=== PATIENT | male | born 1980 | race Caucasian/White ===

== ENCOUNTER 2016-09-26 10:00 | Emergency (ER) | payer OTHER | END 2016-09-26 13:03 | disposition home or self-care (01) | DX: S52.124A Nondisplaced fracture of head of right radius, initial encounter for closed fracture (principal); W11.XXXA Fall on and from ladder, initial encounter ==

== ENCOUNTER 2016-09-30 09:09 | Outpatient (CLI) | payer OTHER | END 2016-09-30 09:10 | disposition home or self-care (01) | DX: S52.121A Displaced fracture of head of right radius, initial encounter for closed fracture (principal); S52.044A Nondisplaced fracture of coronoid process of right ulna, initial encounter for closed fracture; S42.494A Other nondisplaced fracture of lower end of right humerus, initial encounter for closed fracture; M25.421 Effusion, right elbow ==

== ENCOUNTER 2016-10-31 13:08 | Outpatient (CLI) | payer OTHER | END 2016-10-31 13:09 | disposition home or self-care (01) | DX: S52.121D Displaced fracture of head of right radius, subsequent encounter for closed fracture with routine healing (principal) ==

== ENCOUNTER 2016-12-26 14:03 | Outpatient (CLI) | payer OTHER ==
--- NOTE | 2016-12-26 17:44 | XRAY Report ---
THREE VIEW RIGHT ELBOW: 12/26/2016 CLINICAL INDICATION: Followup radial head fracture. COMPARISON: 11/28/2016 AP, lateral, oblique views of the right elbow demonstrate stable alignment of the radial head fractur e. There has been interval increase in callus formation. No new fracture is appreciated. Effusion has decreased. IMPRESSION: INCREASING CALLUS FORMATION AT THE RIGHT RADIAL HEAD FRACTURE SITE. JOB #: [id number] EXT JOB #:[id number]
== END 2016-12-26 14:04 | disposition home or self-care (01) ==
LOC: DI 14:03
PROVIDERS: ATTEND Orthopaedic Surgery
DX: S52.121D Displaced fracture of head of right radius, subsequent encounter for closed fracture with routine healing (principal)

== ENCOUNTER 2017-01-03 07:13 | Outpatient (CLI) | payer OTHER ==
--- NOTE | 2017-01-03 11:36 | CT Report ---
CT OF THE RIGHT ARM WITHOUT CONTRAST: 01/03/2017 CLINICAL HISTORY: A 36-year-old male who had a significant right elbow injury 09/12/2016. Multiple fractures were present including a mildly depressed fracture of the radial head, a nondisplaced fracture of the tip of the coronoid process, a nondisplaced fracture of the anteromedial surface of the capitellum, as well as multiple tiny loose bodies representing small fracture fragments. Present exam is being done in followup. TECHNIQUE: Sagittal and coronal and axial reconstruction images were obtained at 1 x 1 mm intervals. FINDINGS: Mildly displaced fracture of the anterior aspect of the radial head is seen. Fracture involves the anterior third of the articular surface of the radial head. There is 2 mm of inferior displacement of the fracture fragment. This represents a stepoff in the articular surface. No significant bridging callus formation is seen. Fracture line is still readily evident. No change in position or alignment is detected as compared to the original study of 2016. Fracture of the anterior aspect of the coronoid process of the right ulna is noted. Fracture line can still be readily evident. Only change is less separation between the fracture fragment and the rest of the ulna. Separation now amounts to 1 mm as compared to 2.5 mm on preceding study. Fracture of the lateral aspect of the capitellum is once again seen. There are some small fracture fragments noted in the anterior aspect of the lateral portion of the elbow joint, most likely a result of this fracture. These are probably active as loose bodies. The largest fragment measures 5 mm. There is no bridging callus noted at the subtle capitellum fracture site. There is fracture also seen in the anterior intercondylar area. This is a subtle small fracture without displacement. Fracture line is less evident and there has been some evidence of healing in this region. Besides the small lateral bone fragments within the elbow joint, there are also some tiny fracture fragments acting as loose bodies within the central aspect of the elbow joint and possibly within the medial aspect of the elbow joint. These are much smaller fragments, measuring 1 mm or less. IMPRESSION: 1. ONLY MINIMAL CHANGE IS SEEN COMPARED TO 09/30/2016 IN PREVIOUSLY NOTED ELBOW FRACTURES COMPARED TO 09/30/2016. 2. MILDLY DEPRESSED AND DISPLACED FRACTURE OF THE ANTERIOR THIRD OF THE ARTICULAR SURFACE OF THE RADIAL HEAD IS ONCE AGAIN NOTED WITHOUT SIGNIFICANT BRIDGING CALLUS. 3. CHIP FRACTURE OF THE ANTERIOR ASPECT OF THE CORONOID PROCESS IS ONCE AGAIN SEEN. NO BRIDGING CALLUS IS NOTED. FRACTURE FRAGMENT DOES NOT SHOW GREAT A SEPARATION FROM THE REST OF THE ULNA ON PRECEDING EXAM. 4. NO CHANGE IS NOTED IN THE SUBTLE FRACTURE OF THE LATERAL ASPECT OF THE CAPITELLUM. 5. THERE IS VERY SUBTLE CHANGE IN THE ANTERIOR INTERCONDYLAR FRACTURE OF THE DISTAL RIGHT HUMERUS WITH MINIMAL CALLUS FORMATION SUGGESTED AT THIS FRACTURE SITE. 6. MULTIPLE SMALL LOOSE BODIES ARE SEEN IN THE RIGHT ELBOW JOINT DISCUSSED ABOVE. In accordance with CT protocol optimization, one or more of the following dose reduction techniques were utilized for this exam: automated exposure control, adjustment of mA and/or KV based on patient size, or use of iterative reconstructive technique. JOB #: [id number] EXT JOB #: [id number] LASHA
== END 2017-01-03 07:14 | disposition home or self-care (01) ==
LOC: DI 07:13
PROVIDERS: ATTEND Orthopaedic Surgery
DX: S52.121D Displaced fracture of head of right radius, subsequent encounter for closed fracture with routine healing (principal); M24.021 Loose body in right elbow

== ENCOUNTER 2017-01-28 07:56 | Day surgery (SDC) | payer OTHER ==
[~2017-01-28 07:56] MED LIST: ceFAZolin 2 GM/50 ML 50 ML IV ONE
[2017-01-28] MEDS ORDERED: SCOPOLAMINE PATCH TOP ONE (08:19)
[2017-01-28] MEDS ORDERED: LACTATED RINGERS 1,000 ML IV ONE ×2 (08:49→09:39)
[2017-01-28] MEDS ORDERED: DEXAMETHASONE 4 MG/ML VIAL IVP ONE (09:00)
[2017-01-28] MEDS ORDERED: ONDANSETRON 4 MG/2 ML VIAL IVP ONE (09:00)
[2017-01-28] MEDS ORDERED: fentaNYL 100 MCG/2 ML VIAL IVP ONE (09:00)
[2017-01-28] MEDS ORDERED: MIDAZOLAM 2 MG/2 ML VIAL IVP ONE (09:00)
[2017-01-28] MEDS ORDERED: ePHEDrine 50 MG/ML AMP IVP ONE (09:00)
[2017-01-28] MEDS ORDERED: LIDOCAINE-MPF 2% 5 ML VIAL IM ONE (09:00)
[2017-01-28] MEDS ORDERED: ACETAMINOPHEN 1,000 MG/100 ML VIAL IV ONE (09:00)
[2017-01-28] MEDS ORDERED: PROPOFOL 200 MG/20 ML VIAL IVP ONE (09:00)
[2017-01-28] MEDS ORDERED: BUPIVACAINE 0.25%-EPI 1:200000 PF 10 ML VIAL SUBQ ONE ×3 (09:21)
[2017-01-28] MEDS ORDERED: LIDOCAINE 1% 50 ML MDV SUBQ ONE ×3 (09:22)
[2017-01-28] MEDS: fentaNYL 100 MCG/2 ML VIAL ONE ×2 (11:41→11:50)
[2017-01-28] MEDS ORDERED: KETOROLAC 15 MG/ML VIAL ONE (12:24)
--- NOTE | 2017-01-28 12:46 | OPERATIVE REPORT ---
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 POSTOPERATIVE DIAGNOSES 1. 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 2. Chondromalacia, posttraumatic. NAME OF PROCEDURE: Right elbow exam under anesthesia, arthroscopy with lysis of adhesions and debride ment of capsule, and anterior and posterior compartment exploration for loose body. SURGEON: Tyree Woodard MD ANESTHESIA: General. INDICATIONS FOR SURGERY: The patient is a 36-year-old male who in September 2016 suffered a fall from a ladder and unfortunately had a terrible triad fracture dislocation of his elbow. This was managed w ith conservative nonoperative management in a cast, followed by mobilization and physical therapy. Th e patient ultimately had diminished range of motion of his elbow and had a sense of popping in it, so therefore a CT scan delineated the degree of damage and a possible loose body. FINDINGS AT SURGERY: The patient's elbow under exam showed range of motion of about 30 degrees to ful l flexion and full supination and pronation. There was a slight popping felt in the olecranon area in full extension at 30 degrees. The patient's arthroscopic exam showed very difficult placement of por tals for surgery because of the arthrofibrosis, dense scarring of the capsule, and fibrinous adhesion s in the joint. Once thorough evaluation was made of the joint, there was not evidence of loose edmundo s, but there was posttraumatic chondromalacia with most severe thinning in the articular area of the capitellum and in the trochlear ridge. The patient's radial head had a fibrinous coat over the top of it of scar tissue. Once debrided away, the surface appeared fairly congruent, and what had been a di splaced fracture on the margin of the radial head was now healed in a minimally displaced position an d did not appear to be catching or popping on direct visualization. Patient's posterior elbow was vis ualized and no loose bodies seen. DESCRIPTION OF OPERATIVE PROCEDURE: The patient was taken to the operating room, was given a general anesthetic. His elbow was sterilely prepped and draped in standard fashion. He was hung in a 90-90 de gree position with a trapeze attachment, and arthroscopy of the elbow was undertaken, establishing an anterolateral portal with infiltration of the portal site, a small aidan in the skin, and then a hemo stat spreading down to capsule. Puncture through the capsule made with the blunt trocar and ultimately inserting the scope and visual izing the medial side, where a properly placed anteromedial portal was made. The shaver was introduce d and capsule and scar tissue debridement was undertaken. The joint surfaces were exposed and examine d, and there was evidence of post-traumatic chondromalacia, most severe in the capitellum. There was not evidence of joint subluxation or loose bodies. The posterior portals were made, direct posterior, and an accessory posterolateral in an attempt to discern whether there were loose bodies or fragment s in the posterior joint, and none were identified, the visualization being very poor posteriorly. Af ter this, the elbow was carefully examined after releasing from the suspension and traction, and the range of motion had definitely improved to 10 degrees to full flexion and full supination and pronati on, but with a persistent posterior popping felt in extension. This popping was not audible, and only perceptible with direct palpation over the posterior elbow and going into passive extension. It was elected at to avoid any open surgery and accept that this was a subluxation impingement phenomenon an d not a loose body. The elbow was infiltrated with Marcaine with epinephrine and portals closed with interrupted nylon damian ture and sterile dressings applied. The patient was taken to the recovery room in stable condition. ESTIMATED BLOOD LOSS: Less than 20 mL. COMPLICATIONS: None. SPONGE AND NEEDLE COUNTS: Correct. JOB #: [id number] EXT JOB #:[id number]
[2017-01-28] MEDS ORDERED: traMADol 50 MG TABLET PO ONE (12:56)
[2017-01-28 13:18] VITALS: BP 142/82
== END 2017-01-28 07:57 | disposition home or self-care (01) ==
LOC: SDS 07:56
PROVIDERS: ATTEND Orthopaedic Surgery
PROC: 0RBL4ZZ Excision of Right Elbow Joint, Percutaneous Endoscopic Approach (ICD-10-PCS; principal; 2017-01-28 09:00)
DX: M24.621 Ankylosis, right elbow (principal); M94.221 Chondromalacia, right elbow; M19.90 Unspecified osteoarthritis, unspecified site; F32.9 Major depressive disorder, single episode, unspecified; F41.9 Anxiety disorder, unspecified; G89.29 Other chronic pain; M54.9 Dorsalgia, unspecified; Z82.49 Family history of ischemic heart disease and other diseases of the circulatory system
CPT/HCPCS: 29837; A9270; J0131; J0690; J3490; J7120

== ENCOUNTER 2019-06-15 14:55 | Outpatient (CLI) | payer OTHER ==
[2019-06-15] MEDS ORDERED: IOVERSOL 320 100 ML VIAL IVP ONE (15:23)
[2019-06-15] MEDS ORDERED: IOVERSOL 320 50 ML VIAL ONE (15:23)
[2019-06-15 15:32] LABS: BASOPHILS # (AUTO) 0.1 10^3/uL (0.0-0.1); BASOPHILS % (AUTO) 0.8 %; EOSINOPHILS # (AUTO) 0.8 10^3/uL (0.0-0.7); EOSINOPHILS % (AUTO) 10.6 %; HGB - HEMOGLOBIN 14.7 g/dL (14.0-18.0); LYMPHOCYTES # (AUTO) 2.1 10^3/uL (1.5-3.5); LYMPHOCYTES % (AUTO) 29.2 %; MEAN CORPUSCULAR HGB CONC 35.1 g/dL (32.0-36.0); MEAN CORPUSCULAR VOLUME 85.5 fL (80.0-94.0); MONOCYTES # (AUTO) 0.5 10^3/uL (0.0-1.0); NEUTROPHILS # (AUTO) 3.8 10^3/uL (1.5-6.6); NEUTROPHILS % (AUTO) 52.1 %; PLT - PLATELET COUNT 307 10^3/uL (130-450); RED CELL DISTRIBUTION WIDTH 11.7 % (12.0-15.0); WHITE BLOOD COUNT 7.3 x10^3/uL (4.8-10.8)
[2019-06-15 15:45] LABS: ALBUMIN 4.3 g/dL (3.2-5.5); ALBUMIN/GLOBULIN RATIO 1.4 (1.0-2.2); BILIRUBIN,TOTAL 0.9 mg/dL (0.2-1.0); CALCIUM 9.3 mg/dL (8.5-10.3); CREATININE 0.9 mg/dL (0.6-1.2); TOTAL PROTEIN 7.4 g/dL (6.7-8.2)
--- NOTE | 2019-06-15 16:47 | CT Report ---
Reason: EPIGASTRIC PAIN Procedure Date: 06/15/2019 Accession Number: [id number] / [id number] Procedure: CT - Abdomen/Pelvis W CPT Code: Final Report FULL RESULT: EXAM: CT ABDOMEN AND PELVIS EXAM DATE: 06/15/2019 04:10 PM. CLINICAL HISTORY: Epigastric pain. COMPARISONS: None. TECHNIQUE: Routine helical CT imaging was performed through the abdomen and pelvis. IV contrast: OPTI 320 90ML. Enteric contrast: Yes. Reconstructions: Coronal and sagittal. In accordance with CT protocol optimization, one or more of the following dose reduction techniques were utilized for this exam: automated exposure control, adjustment of mA and/or KV based on patient size, or use of iterative reconstructive technique. FINDINGS: Lung Bases: Unremarkable. Liver: Normal. No masses. Gallbladder/Bile Ducts: Unremarkable. Spleen: Normal. Pancreas: Normal. Adrenal Glands: Normal. Kidneys: Normal. No masses or hydronephrosis. Peritoneal Cavity/Bowel: Normal. No free fluid, free air or adenopathy. No masses or acute inflammatory process. The appendix is well visualized and normal. Pelvic Organs: Normal. The bladder and visualized pelvic organs are within normal limits. Vasculature: No aneurysms or other significant abnormality. Bones: Bilateral posterior spinal fusion hardware spans the L4-L5 level. There is a partially sacralized L5 element. No fracture or bone lesion evident. Other: None. IMPRESSION: No clear etiology for epigastric pain identified. No GI tract inflammatory process evident. Normal appendix. [facility] The call report notification system was initiated by Dr. Sanjuanita Chakraborty at 04:38 PM on 06/15/2019. The above call report findings were discussed with CHEO Gaxiola by Dr. Sanjuanita Chakraborty at 04:45 PM on 06/15/2019.
[2019-06-16] MEDS ORDERED: IOVERSOL 320 50 ML VIAL PO ONE (16:33)
[2019-06-16] MEDS ORDERED: IOVERSOL 320 100 ML VIAL IVP ONE (16:33)
== END 2019-06-15 14:56 | disposition home or self-care (01) ==
LOC: DI 14:55
PROVIDERS: ATTEND Registered Nurse
DX: R10.13 Epigastric pain (principal)
CPT/HCPCS: 36415; 74177; 80053; 85025; Q9967

== ENCOUNTER 2023-09-26 09:33 | Outpatient (CLI) | payer OTHER ==
--- NOTE | 2023-09-26 10:16 | XRAY Report ---
PROCEDURE: Knee 1-2V RT INDICATIONS: DISRUPTION OF UNSPECIFIED LIGAMENT OF RT KNEE TECHNIQUE: 2 views of the knee(s) were acquired. COMPARISON: None. FINDINGS: Bones: No fractures or dislocations. No suspicious bony lesions. Soft tissues: No knee joint effusion. No suspicious soft tissue calcifications or masses. IMPRESSION: No acute bony abnormality. If there remains a high clinical concern for fracture or soft tissue injur y, consider cross-sectional imaging now (CT or MRI, respectively). If pain persists, consider repeat x-ray in 10-14 days or cross-sectional imaging. Reviewed by: Teresa Sanders MD on 09/26/2023 10:15 AM PST Approved by: Teresa Sanders MD on 09/26/2023 10:15 AM PST Station ID: [id number]
== END 2023-09-26 09:34 | disposition home or self-care (01) ==
LOC: DI.S 09:33
PROVIDERS: ATTEND Physician Assistant Medical
DX: M23.601 Other spontaneous disruption of unspecified ligament of right knee (principal)

== ENCOUNTER 2023-10-25 08:07 | Outpatient (CLI) | payer OTHER ==
--- NOTE | 2023-10-28 12:08 | MRI Report ---
PROCEDURE: Knee RT WO INDICATIONS: DISRUPTION OF KNEE LIGAMENT TECHNIQUE: Noncontrast sagittal PD fast spin echo and T2 fast spin echo with fat saturation, sagittal 3-D gradie nt sequence with fat saturation; coronal T1 spin echo and PD fast spin echo with fat saturation, and axial PD fast spin echo with fat saturation through the knee. COMPARISON: X-ray right knee, 09/26/2023. FINDINGS: Image quality: Excellent. Menisci: There is horizontal tear of the posterior horn the medial meniscus. The lateral meniscus dem onstrates normal morphology and internal signal. The meniscal root ligaments appear intact. Cruciate ligaments: There is tear of the distal anterior cruciate ligament, which may be partial. The posterior cruciate ligament is intact. Medial structures: There is grade I sprain of medial collateral ligament, which may be chronic. The semimembranosus tendon insertions and meniscocapsular junction appear intact. Visualized portions o f the pes anserinus tendons appear normal. No abnormal bursal fluid. Lateral structures: The lateral collateral ligament, long and short heads of the biceps femoris tend on appear intact. The popliteus tendon appears normal. Iliotibial band appears normal. Anterior structures: The quadriceps and patellar tendons appear intact. Patellar alignment is casie l. No femoral trochlear dysplasia or ventral trochlear prominence. No edema in the infrapatellar fa t pad. Bones and cartilage: No bone marrow contusions or fractures. The cartilage of the medial and latera l femorotibial compartments, as well as the patellofemoral compartment, appears normal in thickness. Joint space: There is small knee joint effusion. No Silverio's cyst. Normal appearing synovial plicae are incidentally noted. IMPRESSION: 1. Anterior cruciate ligament tear, which may be partial. 2. Horizontal tear of the posterior horn of the medial meniscus. 3. Low-grade sprain of MCL. 4. Small knee joint effusion. Reviewed by: Kamille Yates MD on 10/28/2023 12:07 PM PDT Approved by: Kamille Yates MD on 10/28/2023 12:07 PM PDT Station ID: [id number]
== END 2023-10-25 08:08 | disposition home or self-care (01) ==
LOC: DI 08:07
PROVIDERS: ATTEND Physician Assistant Medical
DX: S83.511A Sprain of anterior cruciate ligament of right knee, initial encounter (principal); S83.241A Other tear of medial meniscus, current injury, right knee, initial encounter; S83.411A Sprain of medial collateral ligament of right knee, initial encounter; M25.461 Effusion, right knee